=== PATIENT | female | born 1930 | race Hispanic/Latino ===

== ENCOUNTER 2018-05-29 18:34 | Observation (INO) | payer MEDICARE ==
--- NOTE | 2018-05-29 20:28 | ED PDOC ---
Arrival/HPI - General Chief Complaint: GI Problem Time Seen by Provider: 05/29/18 18:57 Historian: Patient - History of Present Illness Narrative History of Present Illness (Text): 05/29/18 20:24 88 year old female, whose past medical history includes a-fib, anxiety, Alzheimer, hypertension, GERD, diverticulitis, and dysphasia, presents to the emergency department with a clogged peg-tube. Patient lives in a intermediate. Patient is able to talk, yet unable to be a good historian for her condition. Patient does follow commands. HPI and ROS limited due to patient mental status. Time/Duration: Prior to Arrival Activities at Onset: Light Context: Home (intermediate) Past Medical History - Provider Review Nursing Documentation Reviewed: Yes - Cardiac Hx Cardiac Disorders: Yes Hx Atrial Fibrillation: Yes Hx Hypertension: Yes - Pulmonary Hx Respiratory Disorders: No - Neurological Hx Neurological Disorder: Yes Hx Alzheimer's Disease: Yes Hx Dementia: Yes - HEENT Hx HEENT Disorder: No - Renal Hx Renal Disorder: No - Endocrine/Metabolic Hx Endocrine Disorders: No - Hematological/Oncological Hx Blood Disorders: No - Integumentary Hx Dermatological Disorder: No - Musculoskeletal/Rheumatological Hx Musculoskeletal Disorders: Yes Hx Falls: Yes - Gastrointestinal Hx Gastrointestinal Disorders: Yes Other/Comment: PEG - Psychiatric Hx Psychophysiologic Disorder: Yes Hx Anxiety: Yes Hx Substance Use: No - Surgical History Other/Comment: PEG TUBE Family/Social History - Physician Review Nursing Documentation Reviewed: Yes Family/Social History: No Known Family HX Smoking Status: Never Smoked Hx Alcohol Use: No Hx Substance Use: No Allergies/Home Meds Allergies/Adverse Reactions: Allergies No Known Allergies Allergy (Verified 05/29/18 19:06) Home Medications: Home Meds Medication Instructions Recorded Confirmed Acetaminophen [Tylenol 325mg tab] 650 mg PEG Q6 PRN 05/29/18 05/29/18 Amiodarone [Cordarone] 200 mg PEG DAILY 05/29/18 05/29/18 Ascorbic Acid [Vitamin C] 500 mg PEG DAILY 05/29/18 05/29/18 Calcium Carbonate [Calcium] 500 mg PEG DAILY 05/29/18 05/29/18 Cholecalciferol (Vitamin D3) 2,000 unit PEG DAILY 05/29/18 05/29/18 [Vitamin D3] Digoxin 125 mcg PEG DAILY 05/29/18 05/29/18 Lansoprazole [Prevacid] 30 mg PEG DAILY 05/29/18 05/29/18 Lidocaine 5% [Lidoderm] 1 patch TOP DAILY 05/29/18 05/29/18 Metoprolol Tartrate 25 mg PEG BID 05/29/18 05/29/18 Rivaroxaban [Xarelto] 15 mg PEG DAILY 05/29/18 05/29/18 amLODIPine [Norvasc] 5 mg PEG DAILY 05/29/18 05/29/18 Review of Systems - Physician Review All systems were reviewed & negative as marked: Yes - Review of Systems Systems not reviewed;Unavailable: Dementia Physical Exam - Physical Exam Physical Exam Limitations: Altered Mental Status Vital Signs Reviewed: Yes Vital Signs Temp Pulse Resp BP Pulse Ox 05/29/18 19:41 98.6 F 90 18 120/69 96 Temperature: Afebrile Blood Pressure: Normal Pulse: Regular Respiratory Rate: Normal Appearance: Positive for: Well-Appearing, Non-Toxic, Comfortable Pain Distress: None Mental Status: Positive for: Confused - Systems Exam Head: Present: Atraumatic, Normocephalic Pupils: Present: PERRL Extroacular Muscles: Present: EOMI Respiratory/Chest: Present: Clear to Auscultation, Good Air Exchange. No: R espiratory Distress, Accessory Muscle Use Cardiovascular: Present: Normal S1, S2, Irregular Rhythm (Irregularly Irregular). No: Murmurs Abdomen: Present: Ostomy Tubes (peg tube in place clear clean; no erythema around peg site) Upper Extremity: Present: Normal Inspection, Normal ROM. No: Cyanosis, Edema Lower Extremity: No: Edema, Normal ROM (Able to move right leg; Unable to move left leg) Neurological: Present: GCS=15, CN II-XII Intact Psychiatric: Present: Alert Medical Decision Making ED Course and Treatment: 05/29/18 20:34 Impression: 88 year old female presents with clogged peg tube Differential Diagnosis included but are not limited to: Dysphasia with defective peg tube Plan: -- Colace Liquid -- Reassess and disposition Prior Visits: Notes and results from previous visits were reviewed Progress Notes: - Medication Orders Current Medication Orders: Discontinued Medications Docusate Sodium (Colace Liquid) 100 mg PO ONCE ONE Stop: 05/29/18 20:07 - Scribe Statement The provider has reviewed the documentation as recorded by the Yudelka Elmore Provider Scribe Attestation: All medical record entries made by the Scribe were at my direction and personally dictated by me. I have reviewed the chart and agree that the record accurately reflects my personal performance of the history, physical exam, medical decision making, and the department course for this patient. I have also personally directed, reviewed, and agree with the discharge instructions and disposition. Disposition/Present on Arrival - Present on Arrival Any Indicators Present on Arrival: No History of DVT/PE: No History of Uncontrolled Diabetes: No Urinary Catheter: No History of Decub. Ulcer: No History Surgical Site Infection Following: None - Disposition Have Diagnosis and Disposition been Completed?: Yes Diagnosis: PEG tube malfunction Disposition: HOSPITALIZED Disposition Time: 20:39 Patient Plan: Admission Condition: GOOD
[2018-05-29] MEDS ORDERED: Sodium Chloride 0.9% 1,000 ML IV SCH (20:45)
[2018-05-29 21:36] LABS: ALBUMIN 3.4 g/dL (3.0-4.8); ALT/SGPT 34 U/L (7-56); AST/SGOT 33 U/L (14-36); BLOOD UREA NITROGEN 41 mg/dL (7-21); CALCIUM 9.1 mg/dL (8.4-10.5); GFR NON-AFRICAN AMERICAN > 60
[2018-05-29 21:40] LABS: BASO # 0.05 K/mm3 (0.0-2.0); BASO % 0.6 % (0.0-3.0); EOS # 0.2 (0.0-0.7); EOS % 1.7 % (1.5-5.0); GRAN # 5.46 (1.4-6.5); GRAN % 61.4 % (50.0-68.0); HEMOGLOBIN 14.8 g/dL (12.0-16.0); LYMPH # 2.5 (1.2-3.4); LYMPH % 28.2 % (22.0-35.0); MEAN CELL VOLUME 92.8 fl (80.0-105.0); MEAN CORPUSCULAR HEMOGLOBIN 28.8 pg (25.0-35.0); MEAN CORPUSCULAR HGB CONC 31.1 g/dl (31.0-37.0); MEAN PLATELET VOLUME 10.7 fl (7.0-11.0); MONO # 0.7 (0.1-0.6); MONO % 8.1 % (1.0-6.0); RBC 5.13 10^6/uL (3.5-6.1); RED CELL DISTRIBUTION WIDTH 16.2 % (11.5-14.5); WHITE BLOOD COUNT 8.9 10^3/uL (4.5-11.0)
[2018-05-29 21:43] LABS: INR 1.06; PARTIAL THROMBOPLASTIN TIME 31.6 Seconds (25.1-36.5); PROTHROMBIN TIME 12.1 SECONDS (9.4-12.5)
[2018-05-30 02:39] VITALS: BMI 21.9
[2018-05-30] MEDS ORDERED: Iohexol 350 MG/100 ML VIAL ONE (12:57)
[2018-05-30] MEDS ORDERED: Iohexol 240 (50 ml) ONE ×2 (12:57→14:10)
--- NOTE | 2018-05-30 13:06 | CP.PCM.CON ---
<Betito Stoddard - Last Filed: 05/30/18 12:57> History of Present Illness - History of Present Illness History of Present Illness: PGY-4 GI Fellow Consult Note The following obtained from chart review due to patient clinical condition. Pt is an 88 yo WF with Alz Dementia (verbal but unable to communicate), Afib (on rivaroxaban), Anxiety, HTN, GERD, Diverticulitis, Dysphagia? presenting from longterm with clogged PEG tube. Pt has reportedly been in her usual state of health and sent in for possible PEG exchange. Unable to obtain ROS due to clinical condition MHx: See above SurgHx: PEG (unknown when placed) Meds: Reviewed in chart FamHx: Unable to obtain SocHx: Unable to obtain All: NKDA Past Patient History - Past Social History Smoking Status: Never Smoked - CARDIAC Hx Cardiac Disorders: Yes Hx Cardia Arrhythmia: Yes (a-fib) Hx Hypertension: Yes - PULMONARY Hx Respiratory Disorders: No - NEUROLOGICAL Hx Neurological Disorder: Yes Hx Alzheimer's Disease: Yes Hx Dementia: Yes - HEENT Hx HEENT Problems: No - RENAL Hx Chronic Kidney Disease: No - ENDOCRINE/METABOLIC Hx Endocrine Disorders: No - HEMATOLOGICAL/ONCOLOGICAL Hx Blood Disorders: Yes Hx Anemia: Yes - INTEGUMENTARY Hx Dermatological Problems: No - MUSCULOSKELETAL/RHEUMATOLOGICAL Hx Musculoskeletal Disorders: Yes Hx Falls: Yes - GASTROINTESTINAL Hx Gastrointestinal Disorders: Yes Hx Diverticulitis: Yes Hx Gastroesophageal Reflux: Yes HX Swallowing Problems: Yes (PEG tube placed) Other/Comment: PEG - GENITOURINARY/GYNECOLOGICAL Hx Genitourinary Disorders: No - PSYCHIATRIC Hx Psychophysiologic Disorder: Yes Hx Anxiety: Yes - SURGICAL HISTORY Hx Surgeries: Yes Hx Joint Replacement: Yes (Lt hip -ORIF) Other/Comment: PEG TUBE Meds Allergies/Adverse Reactions: Allergies Allergy/AdvReac Type Severity Reaction Status Date / Time No Known Allergies Allergy Verified 05/29/18 19:06 - Medications Medications: Current Medications Dextrose (Dextrose 5% In Water 1000 Ml) 1,000 mls @ 125 mls/hr IV .Q8H JAC Stop: 05/31/18 00:59 Last Admin: 05/30/18 09:24 Dose: 125 mls/hr Physical Exam - Constitutional Appears: No Acute Distress, Confused, Chronically Ill - Head Exam Head Exam: ATRAUMATIC, NORMAL INSPECTION - Eye Exam Eye Exam: EOMI. absent: Scleral icterus - ENT Exam ENT Exam: Mucous Membranes Dry. absent: Mucous Membranes Moist - Respiratory Exam Respiratory Exam: NORMAL BREATHING PATTERN. absent: Accessory Muscle Use, Respiratory Distress - Cardiovascular Exam Cardiovascular Exam: REGULAR RHYTHM, RRR - GI/Abdominal Exam GI & Abdominal Exam: Normal Bowel Sounds, Soft. absent: Bruit, Diminished Bowel Sounds, Distended, Firm, Guarding, Hernia, Organomegaly, Pulsatile Mass, Rebound, Rigid, Tenderness Additional comments: [address], easily slid in tract, no overt erythema or discharge - Rectal Exam Rectal Exam: Deferred - Extremities Exam Extremities exam: Positive for: normal inspection. Negative for: pedal edema - Neurological Exam Neurological exam: Alert Additional comments: mumbles, non-conversive - Psychiatric Exam Psychiatric exam: Flat Affect - Skin Skin Exam: Dry, Normal Color Results - Vital Signs Recent Vital Signs: Last Vital Signs Temp 97.1 F L 05/30/18 08:25 Pulse 91 H 05/30/18 08:25 Resp 20 05/30/18 08:25 BP 105/64 05/30/18 08:25 Pulse Ox 96 05/30/18 08:25 - Labs Result Diagrams: 05/29/18 21:00 05/29/18 21:00 Labs: Laboratory Results - last 24 hr 05/29/18 05/29/18 05/29/18 21:00 21:00 21:00 WBC 8.9 RBC 5.13 Hgb 14.8 Hct 47.6 MCV 92.8 MCH 28.8 MCHC 31.1 RDW 16.2 H Plt Count 250 MPV 10.7 Gran % 61.4 Lymph % (Auto) 28.2 [place] % (Auto) 8.1 H Eos % (Auto) 1.7 Baso % (Auto) 0.6 Gran # 5.46 Lymph # (Auto) 2.5 [place] # (Auto) 0.7 H Eos # (Auto) 0.2 Baso # (Auto) 0.05 PT 12.1 INR 1.06 APTT 31.6 Sodium 155 H Potassium 4.1 Chloride 117 H Carbon Dioxide 35 H Anion Gap 8 L BUN 41 H Creatinine 0.8 Est GFR ( Amer) > 60 Est GFR (Non-Af Amer) > 60 Random Glucose 110 Calcium 9.1 Total Bilirubin 0.4 AST 33 ALT 34 Alkaline Phosphatase 99 Total Protein 6.9 Albumin 3.4 Globulin 3.5 Albumin/Globulin Ratio 1.0 L Blood Type Blood Type Confirm Antibody Screen BBK History Checked 05/29/18 05/30/18 21:30 06:45 WBC RBC Hgb Hct MCV MCH MCHC RDW Plt Count MPV Gran % Lymph % (Auto) [place] % (Auto) Eos % (Auto) Baso % (Auto) Gran # Lymph # (Auto) [place] # (Auto) Eos # (Auto) Baso # (Auto) PT INR APTT Sodium Potassium Chloride Carbon Dioxide Anion Gap BUN Creatinine Est GFR ( Amer) Est GFR (Non-Af Amer) Random Glucose Calcium Total Bilirubin AST ALT Alkaline Phosphatase Total Protein Albumin Globulin Albumin/Globulin Ratio Blood Type O NEGATIVE Blood Type Confirm O NEGATIVE Antibody Screen Negative BBK History Checked No verified bt Assessment & Plan - Assessment and Plan (Free Text) Assessment: 88 yo WF with Alz Dementia with PED, Afib, HTN presenting from longterm with clogged PEG. # PEG tube malfunction: Attempted brush clean out of PEG at bedside but unable to pass. Plan: - Exchanged PEG at bedside with 20 F at 3 cm - Will check placement with plain film and contrast - If placement confirmed, can use tube immediately for feeds and meds - Tube should be flushed with 30 mL water q 8 hrs to prevent clogging - Use abd binder if patient messes tugs at tube Pt seen and examined with Dr. Isaac; please see attestation for further recs/changes. <Mary Ann Isaac V - Last Filed: 05/31/18 00:18> Results - Vital Signs Recent Vital Signs: Last Vital Signs Temp 97.9 F 05/30/18 17:18 Pulse 75 05/30/18 17:18 Resp 18 05/30/18 17:18 BP 119/72 05/30/18 17:18 Pulse Ox 95 05/30/18 17:18 - Labs Result Diagrams: 05/29/18 21:00 05/29/18 21:00 Labs: Laboratory Results - last 24 hr 05/29/18 05/30/18 21:30 06:45 Blood Type O NEGATIVE Blood Type Confirm O NEGATIVE Antibody Screen Negative Attending/Attestation - Attestation I have personally seen and examined this patient.: Yes I have fully participated in the care of the patient.: Yes I have reviewed all pertinent clinical information: Yes Notes (Text): This is an addendum to GI progress report dictated by the GI Fellow. The patient was seen and examined earlier. Medical records, lab studies, imagings were reviewed. Last 24 hours events reviewed. Agreed with the above The PEG tube was replaced it was blocked could not unblock 18 Upper [place] gastric tube was replaced patient tolerated the procedure well Gastrografin study was done and confirmed with the PEG tube in place can restart the feeding 05/31/18 00:17
--- NOTE | 2018-05-30 14:34 | CT ---
Date of service: 05/30/2018 PROCEDURE: CT Pelvis with PO contrast HISTORY: LT GROIN MASS COMPARISON: None available. TECHNIQUE: Contiguous axial images of the pelvis following administration of Oral contrast. No intravenous contrast given. Coronal and sagittal reformats generated. Radiation dose: Total exam DLP = 250.96 mGy-cm. This CT exam was performed using one or more of the following dose reduction techniques: Automated exposure control, adjustment of the mA and/or kV according to patient size, and/or use of iterative reconstruction technique. FINDINGS: BLADDER: Unremarkable. No mass. REPRODUCTIVE ORGANS: Unremarkable. VISUALIZED BOWEL: There is a left inguinal region hernia with herniation of the sigmoid colon. The hernia sac measures 7.4 cm wide by 4.2 cm AP by 9 cm height. There is no associated obstruction. There is diverticulosis of the sigmoid colon. PERITONEUM: Unremarkable, as visualized. No free fluid. No free air. LYMPH NODES: Unremarkable. No enlarged lymph nodes. BONES: There is an area of ossification in the left sacral notch. This may be the result of a previous hemorrhage. VASCULATURE: No aortic atherosclerotic calcification or mural plaque present. OTHER FINDINGS: None. IMPRESSION: There is a left inguinal region hernia with herniation of the sigmoid colon. The hernia sac measures 7.4 cm wide by 4.2 cm AP by 9 cm height. There is no associated obstruction. There is diverticulosis of the sigmoid colon.
--- NOTE | 2018-05-30 15:46 | RAD ---
Date of service: 05/30/2018 HISTORY: PEG PLACEMENT COMPARISON: None available. FINDINGS: BOWEL: Normal. No obstruction. No free air. Three images were obtained after contrast was injected through the PEG tube. The images show intraluminal location of the balloon tip catheter with opacification of the stomach BONES: Normal. OTHER FINDINGS: None. IMPRESSION: PEG tube in satisfactory position
--- NOTE | 2018-05-30 15:47 | HP ---
DATE OF EXAM: 05/30/2018 CHIEF COMPLAINT AND HISTORY OF PRESENT ILLNESS: This is an 88-year-old female who has come in to the hospital, because she had a clogged PEG tube. The patient was brought in for evaluation. She has no complaints of any chest pain, any shortness of breath. No headaches. It was not able to be unclogged at [facility], so the patient was brought in to the hospital for evaluation by Gastroenterology. The patient has a history of dementia, she is not able to give much information. I know that the patient from [facility]. The patient is a long-term care resident there. Review of symptoms is limited. PAST MEDICAL HISTORY: 1. AFib, on rivaroxaban. 2. Dementia, Alzheimer's type. 3. Hypertension. 4. Anxiety. 5. diverticulitis. PAST SURGICAL HISTORY: PEG. FAMILY HISTORY: Unable to obtain. SOCIAL HISTORY: She does not smoke, drink. 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 MEDICATIONS: They been reviewed on JUL. She was on calcium, amiodarone, digoxin, metoprolol, amlodipine, Prevacid, Tylenol, ascorbic acid, rivaroxaban 15 mg daily. PHYSICAL EXAMINATION: VITAL SIGNS: Temperature is 97.1, pulse of 91, blood pressure is 105/64, respirations 20, O2 saturation is 96%. Height is 5 feet 2 inches, weight is 120 pounds. BMI is 21.9. GENERAL: The patient is lying in bed, comfortable, and in no acute distress. HEENT: Atraumatic and normocephalic. Anicteric sclerae. Moist mucosa. [place] conjunctivae. No oral lesions. NECK: No JVD, anterior and posterior adenopathy, thyromegaly, or bruits. CARDIOVASCULAR: S1 and S2 regular. No murmurs, rubs or gallops. LUNGS: Clear to auscultation bilaterally. No wheezes, rales, or rhonchi. ABDOMEN: Bowel sounds are positive. Soft, nontender and nondistended. No hepatosplenomegaly. No rebound and no guarding. In the left inguinal area, there is a mass, it is palpable, it is about 6-7 cm in largest diameter. It is not hard. EXTREMITIES: No cyanosis, clubbing, or edema. NEUROLOGIC: No facial asymmetry. Tongue is midline. No uvula deviation. Power is 5/5 upper extremities and lower extremities. Sensation intact in upper extremities and lower extremities. She is alert, awake, oriented x0. She is able to follow simple commands. PSYCHIATRIC: The patient denies any hallucinations. She has no depression. She has poor insight. GENITOURINARY: No CVA tenderness. VASCULAR: 2+ pulses in the carotid pulses and pedal pulses. SKIN: No erythema or nodules SPINE: Shows normal curvature. LABORATORY DATA: White count of 8.9, hemoglobin 14.8, INR is 1.06. Chemistry shows a sodium of 155, potassium is 4.1, creatinine is 0.8, AST is 33, ALT is 34. ASSESSMENT: 1. Clogged percutaneous endoscopic gastrostomy dysfunction. 2. Dementia, Alzheimer's type. 3. Anxiety. 4. Hypertension. 5. Gastroesophageal reflux disease. 6. Atrial fibrillation, on anticoagulation. PLAN: The patient is currently comfortable. She is going to be seen by Dr. Isaac to try to unclog the PEG feedings. Her medications are on hold, because she is not able to swallow and the medications cannot be given through the PEG. She does have the left inguinal mass, I will get CAT scan of the pelvis to evaluate further. I will also ask Surgery to evaluate the area. The patient is currently n.p.o. I did speak to the patient's daughter this morning to give her an update. The plan is to discharge the patient back to [facility] once the evaluation and de-clogging of the PEG feeding is complete. I spoke with Dinora, her number is [phone]. Bhanu Drummond MD
--- NOTE | 2018-05-30 15:53 | CP.PCM.CON ---
History of Present Illness - History of Present Illness History of Present Illness: Surgery Consult note- Dr. Orta 88F pmhx significant for Alzheimer's, diverticulitis, PEG tube insertion due to poor nutritional intake, currently resides at [facility] [place] [facility] [place] tube. Surgery was consulted after noticing a left inguinal hernia. HPI was obtained via daughter due to patient mentation. Daughter states they are aware of the hernia and that it has been present "for some time". the main concern when they initially found out was the diverticulitis, and later hip fracture. Patient has been having regular daily bowel movements. Abdomen is soft non, tender, non-distended. No color changes noted at the site of the left inguinal hernia. PMH: stated above, hx of ?colon Ca s/p ex-lap and bowel resection +25 years ago PSH: Left hip replacement (01/2018, PEG (02/2018), Diverticulitis drain s/p r emoval in 12/2017 ALL: NKDA SocialHx: unable to obtain FH: non-contributory Review of Systems - Review of Systems All systems: reviewed and no additional remarkable complaints except - Constitutional Constitutional: As Per HPI Past Patient History - Past Social History Smoking Status: Never Smoked - CARDIAC Hx Cardiac Disorders: Yes Hx Cardia Arrhythmia: Yes (a-fib) Hx Hypertension: Yes - PULMONARY Hx Respiratory Disorders: No - NEUROLOGICAL Hx Neurological Disorder: Yes Hx Alzheimer's Disease: Yes Hx Dementia: Yes - HEENT Hx HEENT Problems: No - RENAL Hx Chronic Kidney Disease: No - ENDOCRINE/METABOLIC Hx Endocrine Disorders: No - HEMATOLOGICAL/ONCOLOGICAL Hx Blood Disorders: Yes Hx Anemia: Yes - INTEGUMENTARY Hx Dermatological Problems: No - MUSCULOSKELETAL/RHEUMATOLOGICAL Hx Musculoskeletal Disorders: Yes Hx Falls: Yes - GASTROINTESTINAL Hx Gastrointestinal Disorders: Yes Hx Diverticulitis: Yes Hx Gastroesophageal Reflux: Yes HX Swallowing Problems: Yes (PEG tube placed) Other/Comment: PEG - GENITOURINARY/GYNECOLOGICAL Hx Genitourinary Disorders: No - PSYCHIATRIC Hx Psychophysiologic Disorder: Yes Hx Anxiety: Yes - SURGICAL HISTORY Hx Surgeries: Yes Hx Joint Replacement: Yes (Lt hip -ORIF) Other/Comment: PEG TUBE Meds Allergies/Adverse Reactions: Allergies Allergy/AdvReac Type Severity Reaction Status Date / Time No Known Allergies Allergy Verified 05/29/18 19:06 - Medications Medications: Current Medications Dextrose (Dextrose 5% In Water 1000 Ml) 1,000 mls @ 125 mls/hr IV .Q8H JAC Stop: 05/31/18 00:59 Last Admin: 05/30/18 09:24 Dose: 125 mls/hr Physical Exam - Constitutional Appears: Non-toxic, No Acute Distress - Head Exam Head Exam: ATRAUMATIC - Eye Exam Eye Exam: EOMI. absent: Scleral icterus - ENT Exam ENT Exam: Mucous Membranes Moist - Respiratory Exam Respiratory Exam: NORMAL BREATHING PATTERN. absent: Accessory Muscle Use, Resp iratory Distress - Cardiovascular Exam Cardiovascular Exam: REGULAR RHYTHM. absent: Bradycardia, Tachycardia - GI/Abdominal Exam GI & Abdominal Exam: Hernia (Left groin hernia. unable to reduce), Normal Bowel Sounds, Soft. absent: Diminished Bowel Sounds, Distended, Firm, Guarding, Rebound, Rigid - Extremities Exam Extremities exam: Negative for: calf tenderness - Neurological Exam Neurological exam: Altered - Skin Skin Exam: Intact, Warm Results - Vital Signs Recent Vital Signs: Last Vital Signs Temp 97.1 F L 05/30/18 08:25 Pulse 91 H 05/30/18 08:25 Resp 20 05/30/18 08:25 BP 105/64 05/30/18 08:25 Pulse Ox 96 05/30/18 08:25 - Labs Result Diagrams: 05/29/18 21:00 05/29/18 21:00 Labs: Laboratory Results - last 24 hr 05/29/18 05/29/18 05/29/18 21:00 21:00 21:00 WBC 8.9 RBC 5.13 Hgb 14.8 Hct 47.6 MCV 92.8 MCH 28.8 MCHC 31.1 RDW 16.2 H Plt Count 250 MPV 10.7 Gran % 61.4 Lymph % (Auto) 28.2 [place] % (Auto) 8.1 H Eos % (Auto) 1.7 Baso % (Auto) 0.6 Gran # 5.46 Lymph # (Auto) 2.5 [place] # (Auto) 0.7 H Eos # (Auto) 0.2 Baso # (Auto) 0.05 PT 12.1 INR 1.06 APTT 31.6 Sodium 155 H Potassium 4.1 Chloride 117 H Carbon Dioxide 35 H Anion Gap 8 L BUN 41 H Creatinine 0.8 Est GFR ( Amer) > 60 Est GFR (Non-Af Amer) > 60 Random Glucose 110 Calcium 9.1 Total Bilirubin 0.4 AST 33 ALT 34 Alkaline Phosphatase 99 Total Protein 6.9 Albumin 3.4 Globulin 3.5 Albumin/Globulin Ratio 1.0 L Blood Type Blood Type Confirm Antibody Screen BBK History Checked 05/29/18 05/30/18 21:30 06:45 WBC RBC Hgb Hct MCV MCH MCHC RDW Plt Count MPV Gran % Lymph % (Auto) [place] % (Auto) Eos % (Auto) Baso % (Auto) Gran # Lymph # (Auto) [place] # (Auto) Eos # (Auto) Baso # (Auto) PT INR APTT Sodium Potassium Chloride Carbon Dioxide Anion Gap BUN Creatinine Est GFR ( Amer) Est GFR (Non-Af Amer) Random Glucose Calcium Total Bilirubin AST ALT Alkaline Phosphatase Total Protein Albumin Globulin Albumin/Globulin Ratio Blood Type O NEGATIVE Blood Type Confirm O NEGATIVE Antibody Screen Negative BBK History Checked No verified bt Assessment & Plan - Assessment and Plan (Free Text) Assessment: 88F w/ left inguinal hernia; discussed case in detail with family and stated that at anytime she could become worse. At this time would prefer to go to another hospital for repair. Plan: - no surgical intervention at this time - continue to monitor bowel function - encouraged family to follow up with hernia repair - discussed case in detail with Dr. Orta surgical attending and daughter PGY2
[2018-05-30 17:19] VITALS: BP 119/72; PULSE 75; RESP 18; TEMP 97.9; O2SAT 95
== END 2018-05-30 20:52 ==
LOC: ED 18:34 → ERH 20:39 → 3RNO 05-30 00:02
PROVIDERS: ADMIT Internal Medicine Nephrology; ATTEND Internal Medicine Nephrology
DX: K94.23 Gastrostomy malfunction (principal); I10 Essential (primary) hypertension; G30.9 Alzheimer's disease, unspecified; F02.80 Dementia in other diseases classified elsewhere, unspecified severity, without behavioral disturbance, psychotic disturbance, mood disturbance, and anxiety; K21.9 Gastro-esophageal reflux disease without esophagitis; I48.91 Unspecified atrial fibrillation; Z79.01 Long term (current) use of anticoagulants; F41.9 Anxiety disorder, unspecified; K40.90 Unilateral inguinal hernia, without obstruction or gangrene, not specified as recurrent
CPT/HCPCS: 36415; 43762; 72193; 74019; 80053; 85025; 85610; 85730; 86850; 86900; 99284; G0378; J7030; J7070; Q9966; Q9967

== ENCOUNTER 2018-08-09 14:52 | Emergency (ER) | payer MEDICARE ==
[2018-08-09 14:56] VITALS: BMI 17.2
--- NOTE | 2018-08-09 15:18 | ED PDOC ---
Arrival/HPI - General Chief Complaint: GI Problem Historian: Patient, EMS - History of Present Illness Narrative History of Present Illness (Text): 08/09/18 15:18 88 y/o female, pmh including htn/a.fibb/alzheimer/gerd/dysphasia, poor historian, nkel[place], biba for replacement of PEG tube. Pt. is from residential, found by the nursing staff that the peg tube is out with unknown amount of time, last peg tube was size 18 and 20, didn't have peg tube with her on the bedside, limited HPI can be obtained as she is baseline alzheimer. Past Medical History - Provider Review Nursing Documentation Reviewed: Yes - Infectious Disease Hx of Infectious Diseases: None - Cardiac Hx Cardiac Disorders: Yes Hx Atrial Fibrillation: Yes Hx Hypertension: Yes - Pulmonary Hx Respiratory Disorders: No - Neurological Hx Neurological Disorder: Yes Hx Alzheimer's Disease: Yes Hx Dementia: Yes - HEENT Hx HEENT Disorder: No - Renal Hx Renal Disorder: No - Endocrine/Metabolic Hx Endocrine Disorders: No - Hematological/Oncological Hx Blood Disorders: No - Integumentary Hx Dermatological Disorder: No - Musculoskeletal/Rheumatological Hx Musculoskeletal Disorders: Yes Hx Falls: Yes - Gastrointestinal Hx Gastrointestinal Disorders: Yes Other/Comment: PEG - Genitourinary/Gynecological Hx Genitourinary Disorders: No - Psychiatric Hx Psychophysiologic Disorder: Yes Hx Anxiety: Yes Hx Substance Use: No - Surgical History Other/Comment: PEG TUBE Family/Social History - Physician Review Nursing Documentation Reviewed: Yes Family/Social History: Unknown Family HX Smoking Status: Never Smoked Hx Alcohol Use: No Hx Substance Use: No Allergies/Home Meds Allergies/Adverse Reactions: Allergies No Known Allergies Allergy (Verified 07/02/18 08:28) Home Medications: Home Meds Medication Instructions Recorded Confirmed Acetaminophen [Tylenol 325mg tab] 650 mg PEG Q6 PRN 05/29/18 08/09/18 Amiodarone [Cordarone] 200 mg PEG DAILY 05/29/18 08/09/18 Ascorbic Acid [Vitamin C] 500 mg PEG DAILY 05/29/18 08/09/18 Calcium Carbonate [Calcium] 500 mg PEG DAILY 05/29/18 08/09/18 Cholecalciferol (Vitamin D3) 2,000 unit PEG DAILY 05/29/18 08/09/18 [Vitamin D3] Digoxin 125 mcg PEG DAILY 05/29/18 08/09/18 Metoprolol Tartrate 25 mg PEG BID 05/29/18 08/09/18 amLODIPine [Norvasc] 5 mg PEG DAILY 05/29/18 08/09/18 Review of Systems - Review of Systems Systems not reviewed;Unavailable: Other (alzheimer) Respiratory: absent: Cough Gastrointestinal: absent: Diarrhea, Nausea, Vomiting Physical Exam Vital Signs Reviewed: Yes Temperature: Afebrile Pulse: Regular Respiratory Rate: Normal Appearance: Positive for: Well-Appearing, Non-Toxic, Comfortable Pain Distress: None Mental Status: Positive for: Alert and Oriented X 3 - Systems Exam Head: Present: Atraumatic, Normocephalic Pupils: Present: PERRL Extroacular Muscles: Present: EOMI Conjunctiva: Present: Normal Mouth: Present: Moist Mucous Membranes Neck: Present: Normal Range of Motion Respiratory/Chest: Present: Clear to Auscultation, Good Air Exchange. No: Respiratory Distress, Accessory Muscle Use Cardiovascular: Present: Regular Rate and Rhythm, Normal S1, S2. No: Murmurs Abdomen: Present: Other (visible stoma noted near epigastric region with no erythematous/swelling/cellulitis/streaking. ). No: Tenderness, Distention, Peritoneal Signs, Rebound, Guarding Back: Present: Normal Inspection Upper Extremity: Present: Normal Inspection. No: Cyanosis, Edema Lower Extremity: Present: Normal Inspection. No: Edema Neurological: Present: GCS=15, CN II-XII Intact, Speech Normal Skin: Present: Warm, Dry, Normal Color. No: Rashes Psychiatric: Present: Alert, Oriented x 3, Normal Insight, Normal Concentration Medical Decision Making ED Course and Treatment: 08/09/18 15:59 -Will replaced the G tube. -I reviewed the chart, she was on size 18 and 20 g tube. 08/09/18 17:05 PROCEDURE: GASTROSTOMY TUBE REPLACEMENT Performed by the emergency provider Consent: Informed consent, after discussion of the risks, benefits, and alternatives to the procedure was obtained. Timeout: A timeout to verify the correct patient, procedure, and site was performed immediately prior to the procedure. Indication: G-tube dislodgement Gastrostomy Tube Size: 18 Procedure: Site prepare and clean with saline, betadine clean on the superficial skin, Slide the external bolster down to the skin with size 20 tube which the patient was in pain so I changed it down to size 18. I ensure that the replacement tube can rotate freely without gastric leakage. The balloon has passed completely through the stoma site and is residing in the GI tract and ballon dilated as instructed to the book. Confirmation: Gastrostomy tube placement was verified by emergency provider and oral contrast xray. Post-procedure: Patient tolerated the procedure well with no immediate complications, gauze dressing and tape. 08/09/18 18:48 -Xray: Satisfactory position of recently placed G-tube. Contrast identified in the stomach and duodenum. -There is no leaking and patient is comfortable, stable to be discharged home. I spoke to the GI fellow Dr. Banks and agreed on the size of the tube. -Discharge home with new G tube, follow up with the pmd and GI within 2 days, return to the ER for any new or worsening signs or symptoms. - RAD Interpretation Radiology Orders: Date of service: 08/09/2018 HISTORY: g tube placement, contrast for confirmation COMPARISON: None available. FINDINGS: BOWEL: The gastrostomy tube is in satisfactory position. Contrast can be seen in the stomach, pylorus and duodenum. No leakage of contrast identified. BONES: Normal. OTHER FINDINGS: None. IMPRESSION: Satisfactory position of recently placed G-tube. Contrast identified in the stomach and duodenum. Construction Project Administrator: Radiologist - PA / MANAGER SOFTWARE DEVELOPMENT / Resident Statement /DO has reviewed & agrees with the documentation as recorded. Disposition/Present on Arrival - Present on Arrival Any Indicators Present on Arrival: No History of DVT/PE: No History of Uncontrolled Diabetes: No Urinary Catheter: No History of Decub. Ulcer: No History Surgical Site Infection Following: None - Disposition Have Diagnosis and Disposition been Completed?: Yes Diagnosis: Gastrostomy tube dysfunction Disposition: HOME/ ROUTINE Disposition Time: 17:20 Patient Plan: Discharge Patient Problems: Current Active Problems Problem Status Onset Gastrostomy tube dysfunction Acute Condition: GOOD Additional Instructions: Discharge home with new G tube, follow up with the pmd and GI within 2 days, return to the ER for any new or worsening signs or symptoms. Referrals: PCP,NO [Primary Care Provider] - Follow up with primary Mary Ann Isaac MD [Medical Doctor] - Follow up with primary Forms: [employer] (Greek), WORK NOTE
[2018-08-09 17:06] VITALS: TEMP 97.8
[2018-08-09] MEDS ORDERED: Iohexol 240 (50 ml) ONE (17:24)
[2018-08-09 18:33] VITALS: RESP 18
--- NOTE | 2018-08-09 18:46 | RAD ---
Date of service: 08/09/2018 HISTORY: g tube placement, contrast for confirmation COMPARISON: None available. FINDINGS: BOWEL: The gastrostomy tube is in satisfactory position. Contrast can be seen in the stomach, pylorus and duodenum. No leakage of contrast identified. BONES: Normal. OTHER FINDINGS: None. IMPRESSION: Satisfactory position of recently placed G-tube. Contrast identified in the stomach and duodenum.
[2018-08-10 00:39] VITALS: BP 132/76; PULSE 75; O2SAT 100
== END 2018-08-09 23:30 | disposition home or self-care (01) ==
LOC: ED 14:52
DX: K94.23 Gastrostomy malfunction (principal); Y84.8 Other medical procedures as the cause of abnormal reaction of the patient, or of later complication, without mention of misadventure at the time of the procedure; Y92.89 Other specified places as the place of occurrence of the external cause
CPT/HCPCS: 49450; 74019; 99284; Q9966